=== PATIENT | male | born 1990 | race Caucasian/White ===

== ENCOUNTER 2019-03-08 04:50 | Emergency (ER) | payer OTHER ==
--- NOTE | 2019-03-08 05:22 | ED ---
Substance Abuse/Use - HPI Summary HPI Summary: Patient is a 28 y/o M presenting to ED with police under 2209 status. He reports alcohol consumption and, per triage, "some synthetic bath salt "bullshit "". While walking outside, patient experienced a fall on the sideway and received abrasions to his face and left elbow. He is unsure of last tetanus shot date. Patient denies acute neck pain. On triage, pain is denied, nothing is noted to aggravate/alleviate Sx. Home medications and allergies are reviewed. - History Of Current Complaint Chief Complaint: EDSubstanceAbuse Stated Complaint: "2209" PER POLICE Time Seen by Provider: 03/08/19 05:10 Hx Obtained From: Patient Ingestion History: Type/Name Of Drug - alcohol, bath salts Overdose Characteristics: Oral Severity Currently: None Aggravating Factor(s): Nothing Alleviating Factor(s): Nothing Associated Signs And Symptoms: Other: - POSITIVE - FACIAL AND LEFT ELBOW ABRASIONS; NEGATIVE - NECK PAIN - Allergies/Home Medications Allergies/Adverse Reactions: Allergies Allergy/AdvReac Type Severity Reaction Status Date / Time No Known Allergies Allergy Verified 03/08/19 04:56 PMH/Surg Hx/FS Hx/Imm Hx Cardiovascular History: Reports: Hx Hypertension Sensory History: Denies: Hx Legally Blind, Hx Deafness Opthamlomology History: Denies: Hx Legally Blind EENT History: Denies: Hx Deafness Infectious Disease History: No Infectious Disease History: Denies: Traveled Outside the [place] in Last 30 Days - Family History Known Family History: Positive: Hypertension - Social History Alcohol Use: Occasionally Substance Use Type: Reports: None Smoking Status (MU): Light Every Day Tobacco Smoker Review of Systems Constitutional: Other - POSITIVE - ALCOHOL AND BATH SALT CONSUMPTION Musculoskeletal: Other - NEGATIVE - NECK PAIN Skin: Other - POSITIVE - FACIAL AND LEFT ELBOW ABRASIONS All Other Systems Reviewed And Are Negative: Yes Physical Exam - Summary Physical Exam Summary: Appearance: well appearing, no pain distress Skin: warm, dry, reflects adequate perfusion, abrasion to left elbow, forehead and nose Head/face: normal Eyes: EOMI, LEONA ENT: mucous membranes moist Neck: supple, non-tender Respiratory: CTA, breath sounds present Cardiovascular: RRR, pulses symmetrical Abdomen: non-tender, soft Bowel Sounds: present Musculoskeletal: normal, strength/ROM intact Neuro: normal, sensory motor intact, A&Ox3, GCS 15 Triage Information Reviewed: Yes Vital Signs On Initial Exam: Initial Vitals Temp Pulse Resp BP Pulse Ox 96.5 F 70 16 127/85 98 03/08/19 04:51 03/08/19 04:51 03/08/19 04:51 03/08/19 04:51 03/08/19 04:51 Vital Signs Reviewed: Yes - Machelle Coma Scale Best Eye Response: 4 - Spontaneous Best Motor Response: 6 - Obeys Commands Best Verbal Response: 5 - Oriented Coma Scale Total: 15 Diagnostics - Vital Signs Vital Signs Temp Pulse Resp BP Pulse Ox 03/08/19 04:51 96.5 F 70 16 127/85 98 - Laboratory Lab Statement: Any lab studies that have been ordered have been reviewed, and results considered in the medical decision making process. - CT BRAIN CT CT Interpretation Completed By: Radiologist Summary of CT Findings: IMPRESSION: No intracranial abnormality. Tiny laceration and soft tissue swelling in the inferior right frontal scalp. THIS REPORT WAS REVIEWED BY DR. LEVINE. Course/Dx - Course Course Of Treatment: Patient with facial abrasions and left arm abrasions after falling. He was intoxicated so head CT was performed. This was negative. He was alert and oriented prior to the CT but has been sleeping soundly since. He will Will discharge with returned to functional capacity. - Diagnoses Differential Diagnosis/HQI/PQRI: Positive: Other - Intoxication, intracranial hematoma/hemorrhage, fracture/contusion, abrasion Provider Diagnoses: Facial abrasion, Abrasion of left elbow, Alcohol intoxication Discharge - Sign-Out/Discharge Documenting (check all that apply): Patient Departure - discharge Patient Received Moderate/Deep Sedation with Procedure: No - Discharge Plan Condition: Improved Disposition: HOME Patient Education Materials: Abrasion (ED), Polysubstance Abuse (ED) Referrals: Layla Lopez MD [Primary Care Provider] - Additional Instructions: Do not drive today. Stay with a responsible adult. Do not use drugs and never drink to excess. You have been given handouts regarding help/local resources for drug and alcohol. Dress your wounds with bacitracin ointment 2-3 times daily. Return with severe headache, vomiting, concerns for infection of the wounds were other concerns. Call your doctor today to schedule follow-up. - Billing Disposition and Condition Condition: IMPROVED Disposition: Home - Attestation Statements Document Initiated by Scribe: Yes Documenting Scribe: BURKE BASS Provider For Whom Scribe is Documenting (Include Credential): JENIFFER LEVINE MD Scribe Attestation: I, BURKE BASS, scribed for JENIFFER LEVINE MD on 03/08/19 at 0709. Scribe Documentation Reviewed: Yes Provider Attestation: The documentation as recorded by the BURKE wall accurately reflects the service I personally performed and the decisions made by me, JENIFFER LEVINE MD Status of Scribe Document: Viewed
[2019-03-08] MEDS ORDERED: Tetan/Diph/Pertus SYR(Tdap)* 0.5 ML SYR(BOOSTRIX) use SYR IM ONE (05:25)
[2019-03-08 10:23] VITALS: BP 113/60
== END 2019-03-08 10:10 | disposition home or self-care (01) ==
LOC: ED 04:50
DX: S00.81XA Abrasion of other part of head, initial encounter (principal); S50.312A Abrasion of left elbow, initial encounter; F10.929 Alcohol use, unspecified with intoxication, unspecified; Z23 Encounter for immunization; I10 Essential (primary) hypertension; F17.290 Nicotine dependence, other tobacco product, uncomplicated; W19.XXXA Unspecified fall, initial encounter
CPT/HCPCS: 70450; 90471; 90715; 99283